=== PATIENT | male | born 1990 | race African-American/Black ===

== ENCOUNTER 2023-12-13 01:36 | Emergency (ER) | payer SELFPAY ==
[~2023-12-13] VITALS: Ht 182.9 cm; Wt 77.1 kg
[2023-12-13 01:46] VITALS: BP 149/93; PULSE 110; RESP 18; TEMP 97.9; O2SAT 96
[2023-12-13 02:20] VITALS: BP 149/93; PULSE 110; RESP 18; TEMP 97.9; O2SAT 96
== END 2023-12-13 02:20 ==
LOC: MED 01:36
DX: F10.129 Alcohol abuse with intoxication, unspecified (principal); Y90.9 Presence of alcohol in blood, level not specified; V49.88XA Car occupant (driver) (passenger) injured in other specified transport accidents, initial encounter; Y93.89 Activity, other specified; Y92.89 Other specified places as the place of occurrence of the external cause; Y99.8 Other external cause status
CPT/HCPCS: 99283